=== PATIENT | female | born 1945 | race Caucasian/White ===

== ENCOUNTER 2023-02-18 06:42 | Day surgery (SDC) | payer MEDICARE, BC ==
[~2023-02-18] VITALS: Ht 160 cm; Wt 97.6 kg
[~2023-02-18 06:42] MED LIST: ASPI81CH33 PO; EZET10TA21 PO; FELO10TA28 PO; METF-838 PO; NOXI1TAB PO; VALS1TAB68 PO; VASC1CAP2 PO; VITMTA PO
[2023-02-18] MEDS ORDERED: LIDOCAINE 1% SDV 5ML VIAL As Ordered ONE (06:59)
[2023-02-18] MEDS ORDERED: LR 1,000 ML IV SCH (07:00)
[2023-02-18] MEDS: TETRACAINE 0.5% OPHTH SOLN 4ML OS SCH ×2 (07:34→07:55)
[2023-02-18] MEDS: PHENYLEPHRINE 2.5% OPHTH SOL 2ML OS SCH ×2 (07:35→07:54)
[2023-02-18] MEDS: FLURBIPROFEN 0.03% OPHTH SOLN 2.5 ML OS SCH ×2 (07:35→07:55)
[2023-02-18] MEDS: CYCLOPENTOLATE 1% OPHTH SOLN 2ML BTL OS SCH ×2 (07:35→07:54)
[2023-02-18] MEDS ORDERED: MIDAZOLAM INJ 2MG/2ML VIAL As Ordered ONE (09:32)
[2023-02-18] MEDS ORDERED: fentaNYL 100 MCG/2 ML INJECTION As Ordered ONE (09:32)
[2023-02-18 09:40] VITALS: BP 178/81
== END 2023-02-18 09:54 | disposition home or self-care (01) ==
LOC: M SDC 06:42
PROVIDERS: ATTEND Ophthalmology
DX: H25.12 Age-related nuclear cataract, left eye (principal); I10 Essential (primary) hypertension; E11.9 Type 2 diabetes mellitus without complications; Z79.899 Other long term (current) drug therapy; Z79.84 Long term (current) use of oral hypoglycemic drugs
CPT/HCPCS: 66984; J2250; J3010; V2632

== ENCOUNTER 2023-05-27 08:53 | Day surgery (SDC) | payer MEDICARE, BC ==
[~2023-05-27] VITALS: Ht 165.1 cm; Wt 98.3 kg
[~2023-05-27 08:53] MED LIST changes: +CYCLOPENTOLATE 1% OPHTH SOLN 2ML BTL OD SCH; +FLURBIPROFEN 0.03% OPHTH SOLN 2.5 ML OD SCH; +LIDOCAINE 1% SDV 5ML VIAL As Ordered ONE; +LR 1,000 ML IV SCH; +PHENYLEPHRINE 2.5% OPHTH SOL 2ML OD SCH; +TETRACAINE 0.5% OPHTH SOLN 4ML OD SCH
[2023-05-27] MEDS ORDERED: CEFUROXIME 1MG/0.1ML INTRACAMERAL INJ As Ordered ONE (09:25)
[2023-05-27] MEDS ORDERED: MIDAZOLAM INJ 2MG/2ML VIAL As Ordered ONE (11:03)
[2023-05-27] MEDS ORDERED: LABETALOL 100MG/20ML VIAL As Ordered ONE (11:13)
[2023-05-27 11:28] VITALS: BP 198/90; TEMP 96.8; O2SAT 99
== END 2023-05-27 11:48 | disposition home or self-care (01) ==
LOC: M SDC 08:53
PROVIDERS: ATTEND Ophthalmology
DX: H25.11 Age-related nuclear cataract, right eye (principal); I10 Essential (primary) hypertension; E11.9 Type 2 diabetes mellitus without complications; R06.83 Snoring; Z87.891 Personal history of nicotine dependence; Z88.0 Allergy status to penicillin; Z79.82 Long term (current) use of aspirin; Z79.84 Long term (current) use of oral hypoglycemic drugs; Z79.899 Other long term (current) drug therapy
CPT/HCPCS: 66984; J0697; J1920; J2250; V2632